=== PATIENT | female | born 1975 | race African-American/Black ===

== ENCOUNTER → 2016-12-10 | Outpatient (CLI) | payer OTHER ==
[~2016-12-10] MED LIST: ALDACTAZIDE PO; AMLODIPINE BESY10 MG PO; ASPIRIN81 MG PO; AUGMENTIN875 MG PO; LEVEMIR100 UNITS/ SUBQ; METFORMIN HCL1000 M1 PO; NOVOLOG FL100 UNIT/1 SUBQ; PERCOCET5/325 PO; PRAVASTATIN SOD20 MG PO; PRINIVIL40 MG PO
--- NOTE | ~2016-12-10 | US128 ---
[id number] [facility] [place], [place] [address] [id number] O MR#: [id number] Acc #: [id number] NAME: MICHELE WOODWARD : 1975 SEX: F STUDY DATE/TIME: 12/10/2016 15:20 UNIT: [facility] ROOM: STUDY DESCRIPTION: Thyroid Attending Physician: Bijal Polanco Referring Physician: Bijal Polanco Ordering Physician: Bijal Polanco Primary Care Physician: Eugenio Whyte M.D. MEDICAL IMAGING REPORT This report is preliminary unless electronic signature is present EXAM Thyroid ultrasound INDICATION Thyroid fullness TECHNIQUE Richard-scale and color Doppler sonographic images were obtained through the thyroid gland. FINDINGS Right lobe thyroid gland is enlarged measuring 5.1 x 1.7 x 1.8 cm. Left lobe measures 4.3 x 1.7 x 1.7 cm. Isthmus measures about 4 mm thickness. Overall thyroid parenchyma is heterogeneous. No discrete nodules are seen on the right. Within the left lobe of the thyroid gland, there is a solid nodule measuring 1.3 x 1.2 x 1.1 cm. There is also a 2 x 2 x 2 mm probable cyst seen more superiorly within the left lobe of the thyroid gland. IMPRESSION This patient has a solid nodule identified within the upper pole left lobe of the thyroid gland measuring 1.1 x 1.3 x 1.2 cm. This does not meet size criteria for percutaneous sampling at this time. I would however suggest short-term sonographic followup in 6 months to document continuing stability. Dictated by... Janice Rodríguez M.D. THIS IS AN ELECTRONICALLY VERIFIED REPORT Janice Rodríguez M.D. at 12/13/2016 10:50 AM AFF/sharita TD: 12/12/2016 15:11 JOB #: [id number] MEDICAL IMAGING REPORT Page 1 of 1 COPY
== END | disposition home or self-care (01) ==
LOC: CGUS 12-02 13:30
DX: E07.89 Other specified disorders of thyroid (principal); E66.9 Obesity, unspecified; E11.65 Type 2 diabetes mellitus with hyperglycemia; E04.1 Nontoxic single thyroid nodule
CPT/HCPCS: 76536